=== PATIENT | female | born 1980 | race Caucasian/White ===

== ENCOUNTER → 2016-08-29 | Outpatient (REF) | payer OTHER | LOC: M SFHCPLAZ 16:52 | DX: D64.9 Anemia, unspecified (principal); J06.9 Acute upper respiratory infection, unspecified ==

== ENCOUNTER → 2016-09-17 | Outpatient (CLI) | payer OTHER ==
[2016-09-17 11:29] LABS: MEAN CORPUSCULAR HEMOGLOBIN 30.4 pg (27.0-33.0); MEAN CORPUSCULAR HGB CONC 33.2 g/dl (32.0-36.5); MEAN CORPUSCULAR VOLUME 91.6 fl (80.0-96.0); RED CELL DISTRIBUTION WIDTH 13.7 % (11.5-14.5)
[2016-09-17 11:35] LABS: CONTROL LINE HCG INT CTR LINE PRESENT
--- NOTE | 2016-09-18 08:06 | REP ---
NONCONTRAST CHEST CT: CLINICAL: Abnormal chest x-ray findings. COMPARISON: Chest x-ray dated 08/30/2016. FINDINGS: CT examination demonstrates the bilateral lung correa to be well aerated, symmetric, and clear. No acute consolidation, nodule or mass lesion appreciated. No chronic interstitial changes are identified. No pleural effusion/reaction or pneumothorax. Tracheobronchial tree is patent. No obvious adenopathy. Mediastinum demonstrates normal thoracic aorta and heart/pericardium. Surrounding musculoskeletal structures are intact and normal. Limited evaluation of the upper abdomen demonstrates normal bilateral adrenal glands. IMPRESSION: Normal noncontrast chest CT. Irregular findings at the left base on recent chest x-ray may have represented transient atelectasis. Unreviewed
== END ==
LOC: M RAD 11:03
PROVIDERS: ATTEND Internal Medicine
DX: R91.8 Other nonspecific abnormal finding of lung field (principal)

== ENCOUNTER → 2016-11-14 | Outpatient (CLI) | payer OTHER ==
--- NOTE | 2016-11-14 07:36 | REP ---
Clinical: Acute epigastric and abdominal pain. Technique: Chávez scale ultrasound using curved array transducer. Findings: The liver and pancreas are normal in contour, size, and echogenicity without focal hepatic or pancreatic lesions identified. The gallbladder is normal without gallstones, wall thickening or pericholecystic fluid. No biliary ductal dilatation is appreciated, and the common bile duct measures 5.2 mm diameter. The right kidney is normal in reniform shape without hydronephrosis and measures 10.6 x 6.5 x 4.9 cm. No ascites. Visualized portions of the abdominal aorta normal. Impression: Normal right upper quadrant and gallbladder abdominal ultrasound. Signed by Manny Bailon MD 11/14/2016 07:26 A
== END ==
LOC: M RAD 06:58
PROVIDERS: ATTEND Family Medicine
DX: R10.13 Epigastric pain (principal)

== ENCOUNTER → 2016-12-23 | Outpatient (REF) | payer OTHER | LOC: M SFHCWAGY 16:02 | PROVIDERS: ATTEND Nurse Practitioner Family | DX: R35.0 Frequency of micturition (principal) ==

== ENCOUNTER → 2017-01-01 | Outpatient (CLI) | payer OTHER | LOC: M LAB 13:03 | PROVIDERS: ATTEND Family Medicine | DX: R53.83 Other fatigue (principal) ==

== ENCOUNTER → 2017-05-14 | Outpatient (CLI) | payer OTHER ==
[2017-05-14 13:56] LABS: HEMATOCRIT 39.8 % (36.0-47.0); MEAN CORPUSCULAR HEMOGLOBIN 29.5 pg (27.0-33.0); MEAN CORPUSCULAR HGB CONC 32.7 g/dl (32.0-36.5); MEAN CORPUSCULAR VOLUME 90.2 fl (80.0-96.0); PLATELET COUNT, AUTOMATED 152 10^3/uL (150-450); RED BLOOD COUNT 4.41 10^6/uL (4.00-5.40); RED CELL DISTRIBUTION WIDTH 12.6 % (11.5-14.5); WHITE BLOOD COUNT 3.8 10^3/uL (4.0-10.0)
== END ==
LOC: M LAB 12:54
DX: D64.9 Anemia, unspecified (principal)
CPT/HCPCS: 85027

== ENCOUNTER → 2017-07-06 | Outpatient (REF) | payer OTHER | LOC: M LAB REF 15:35 | DX: J02.9 Acute pharyngitis, unspecified (principal) ==

== ENCOUNTER → 2017-09-12 | Outpatient (REF) | payer OTHER, MEDICAID ==
[2017-09-12 14:25] LABS: HIV 1&2 SCREEN CENTAUR NEGATIVE (NEGATIVE)
[2017-09-12 15:53] LABS: CHLAMYDIA DNA AMPLIFICATION NEGATIVE (NEGATIVE); GC DNA AMPLIFICATION NEGATIVE (NEGATIVE)
[2017-09-17 00:08] LABS: HPV HYBRID CAPTURE II Positive (Negative)
== END ==
LOC: M SFHCWAGY 11:13
DX: Z01.419 Encounter for gynecological examination (general) (routine) without abnormal findings (principal); Z11.51 Encounter for screening for human papillomavirus (HPV); R87.620 Atypical squamous cells of undetermined significance on cytologic smear of vagina (ASC-US)

== ENCOUNTER → 2017-10-13 | Outpatient (REF) | payer OTHER | LOC: M SFHCWAGY 13:55 | DX: R87.810 Cervical high risk human papillomavirus (HPV) DNA test positive (principal); R87.610 Atypical squamous cells of undetermined significance on cytologic smear of cervix (ASC-US) | CPT/HCPCS: 88305 ==

== ENCOUNTER → 2017-12-11 | Outpatient (REF) | payer OTHER | LOC: M SFHCLERA 12-12 12:12 | DX: D36.7 Benign neoplasm of other specified sites (principal) ==

== ENCOUNTER → 2018-01-23 | Outpatient (REF) | payer OTHER | LOC: M SFHCWAGY 17:04 | DX: N90.89 Other specified noninflammatory disorders of vulva and perineum (principal) | CPT/HCPCS: 87255 ==

== ENCOUNTER → 2018-03-12 | Outpatient (REF) | payer OTHER | LOC: M SFHCPLAZ 13:50 | DX: R63.5 Abnormal weight gain (principal) ==

== ENCOUNTER → 2018-05-25 | Outpatient (CLI) | payer OTHER ==
[2018-05-25 12:59] LABS: HEMATOCRIT 36.9 % (36.0-47.0); HEMOGLOBIN 12.1 g/dl (12.0-15.5); MEAN CORPUSCULAR HEMOGLOBIN 28.8 pg (27.0-33.0); MEAN CORPUSCULAR HGB CONC 32.8 g/dl (32.0-36.5); MEAN CORPUSCULAR VOLUME 87.9 fl (80.0-96.0); PLATELET COUNT, AUTOMATED 165 10^3/uL (150-450); WHITE BLOOD COUNT 4.9 10^3/uL (4.0-10.0)
== END ==
LOC: M LAB 12:31
PROVIDERS: ATTEND Internal Medicine
DX: R63.5 Abnormal weight gain (principal)

== ENCOUNTER 2018-12-27 16:41 | Emergency (ER) | payer OTHER ==
[~2018-12-27] VITALS: Ht 167.6 cm; Wt 78.9 kg
[2018-12-27] MEDS ORDERED: MULTCAP PO (16:47)
[2018-12-27 17:15] LABS: BASO % 0.6 % (0.0-1.0); EOS % 0.3 % (0.0-3.0); HEMATOCRIT 38.8 % (36.0-47.0); HEMOGLOBIN 12.7 g/dl (12.0-15.5); LYMPH % 28.6 % (24.0-44.0); MEAN CORPUSCULAR HEMOGLOBIN 29.1 pg (27.0-33.0); MEAN CORPUSCULAR HGB CONC 32.7 g/dl (32.0-36.5); MEAN CORPUSCULAR VOLUME 88.8 fl (80.0-96.0); MONO # 0.5 10^3/uL (0.0-0.8); MONO % 7.4 % (0.0-5.0); NEUTROPHILS # 4.3 10^3/uL (1.8-7.7); NEUTROPHILS % 62.8 % (36.0-66.0); PLATELET COUNT, AUTOMATED 206 10^3/uL (150-450); RED BLOOD COUNT 4.37 10^6/uL (4.00-5.40); WHITE BLOOD COUNT 6.9 10^3/uL (4.0-10.0)
[2018-12-27 17:41] LABS: ALBUMIN 4.3 GM/DL (3.2-5.2); ALT/SGPT 42 U/L (12-78); BILIRUBIN,DIRECT 0.1 MG/DL (0.0-0.2); BILIRUBIN,TOTAL 0.5 MG/DL (0.2-1.0); BLOOD UREA NITROGEN 7 MG/DL (7-18); CALCIUM LEVEL 9.8 MG/DL (8.5-10.1); CARBON DIOXIDE LEVEL 25 MEQ/L (21-32); CHLORIDE LEVEL 107 MEQ/L (98-107); CREATININE FOR GFR 0.76 MG/DL (0.55-1.30); GLOMERULAR FILTRATION RATE > 60.0 (>60); GLUCOSE, FASTING 96 MG/DL (70-100); LIPASE 131 U/L (73-393); POTASSIUM SERUM 3.7 MEQ/L (3.5-5.1); SODIUM LEVEL 140 MEQ/L (136-145); TOTAL PROTEIN 8.2 GM/DL (6.4-8.2)
[2018-12-27] MEDS ORDERED: SUCRALFATE 1 GM TAB PO ONE (17:45)
[2018-12-27] MEDS ORDERED: GI COCKTAIL 50ML BTL(HYOSCYAMINE/MAALOX/LIDOCAINE VISCOUS)(1:3:1) PO ONE (17:45)
[2018-12-27] MEDS ORDERED: NS 1,000 ML IV ONE (17:45)
[2018-12-27] MEDS ORDERED: ONDANSETRON 4MG/2ML VIAL (J2405) IV PRN (17:45)
[2018-12-27] MEDS ORDERED: ZANT150T40 PO (19:28)
[2018-12-27] MEDS ORDERED: ZOFR4TAB16 PO (19:28)
[2018-12-27] MEDS ORDERED: CARA1TAB6 PO (19:28)
[2018-12-27 20:00] VITALS: BP 119/73
== END 2018-12-27 20:07 | disposition home or self-care (01) ==
LOC: M ED 16:41
DX: R10.13 Epigastric pain (principal); R11.0 Nausea; J45.909 Unspecified asthma, uncomplicated
CPT/HCPCS: 80048; 80076; 81001; 83690; 84702; 85025; 87086; 96361; 96374; 99284; J2405

== ENCOUNTER → 2018-12-31 | Outpatient (REF) | payer OTHER ==
[~2018-12-31] MED LIST: CARA1TAB6 PO; MULTCAP PO; ZANT150T40 PO; ZOFR4TAB16 PO
[2019-01-02 16:05] LABS: HPV HYBRID CAPTURE II Negative (Negative)
== END ==
LOC: M SFHCWAGY 10:18
PROVIDERS: ATTEND Nurse Practitioner Family
DX: Z12.4 Encounter for screening for malignant neoplasm of cervix (principal); R87.610 Atypical squamous cells of undetermined significance on cytologic smear of cervix (ASC-US)

== ENCOUNTER → 2019-01-29 | Outpatient (REF) | payer OTHER ==
[2019-02-01 15:09] LABS: CHLAMYDIA DNA AMPLIFICATION NEGATIVE (NEGATIVE); GC DNA AMPLIFICATION NEGATIVE (NEGATIVE)
== END ==
LOC: M SFHCPLAZ 09:47
PROVIDERS: ATTEND Internal Medicine
DX: N30.00 Acute cystitis without hematuria (principal)

== ENCOUNTER → 2019-02-10 | Outpatient (CLI) | payer OTHER ==
--- NOTE | 2019-02-10 14:34 | REP ---
Lumbar spine seven views including lateral views in flexion and extension: There is lumbar scoliosis convex left, possibly positional. The lumbar vertebral body heights and alignment are normal. . Interspacing is normal. The transverse processes of L5 are congenitally enlarged. The enlarged L5 right transverse process forms a pseudoarticulation with the sacrum as a congenital variation. The pedicles and facet articulations are unremarkable. There is questionable L5 unilateral spondylolysis on the left. There is no spondylolisthesis. There is no spondylolisthesis on the lateral views in flexion or extension. The sacroiliac articulations are unremarkable. There are faintly visible tiny calcifications in the soft tissues to the right of the lumbar spine of uncertain significance, possibly tiny foreign bodies or clothing artifacts. The Impression: Scoliosis convex left. 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 The enlarged right L5 transverse process forms a pseudoarticulation with the sacrum. Questionable L5 left spondylolysis. There is no spondylolisthesis. Electronically Signed by Baljeet Slaughter MD 02/10/2019 02:25 P
== END ==
LOC: M RAD 12:03
PROVIDERS: ATTEND Internal Medicine
DX: M54.5 Low back pain (principal)

== ENCOUNTER → 2019-07-12 | Outpatient (CLI) | payer OTHER ==
[2019-07-12 18:14] LABS: BASO % 0.3 % (0.0-1.0); EOS % 0.4 % (0.0-3.0); HEMATOCRIT 37.1 % (36.0-47.0); HEMOGLOBIN 12.4 g/dl (12.0-15.5); LYMPH # 1.6 10^3/uL (1.5-5.0); LYMPH % 22.2 % (24.0-44.0); MEAN CORPUSCULAR HEMOGLOBIN 30.3 pg (27.0-33.0); MEAN CORPUSCULAR HGB CONC 33.4 g/dl (32.0-36.5); MEAN CORPUSCULAR VOLUME 90.7 fl (80.0-96.0); MONO # 0.4 10^3/uL (0.0-0.8); MONO % 5.7 % (0.0-5.0); NEUTROPHILS % 71.1 % (36.0-66.0); PLATELET COUNT, AUTOMATED 148 10^3/uL (150-450); RED BLOOD COUNT 4.09 10^6/uL (4.00-5.40)
[2019-07-12 19:10] LABS: HEPATITIS C VIRUS ABY INDEX < 0.0 INDEX (<0.8); HIV 1&2 SCREEN CENTAUR NEGATIVE (NEGATIVE); RUBELLA IgG QUALITATIVE IMMUNE (IMMUNE)
[2019-07-12 20:18] LABS: CHLAMYDIA DNA AMPLIFICATION NEGATIVE (NEGATIVE); GC DNA AMPLIFICATION NEGATIVE (NEGATIVE)
== END ==
LOC: M PLALAB 12:35
PROVIDERS: ATTEND Advanced Practice Midwife
DX: O09.521 Supervision of elderly multigravida, first trimester (principal); Z3A.00 Weeks of gestation of pregnancy not specified

== ENCOUNTER → 2019-08-23 | Outpatient (CLI) | payer OTHER ==
--- NOTE | 2019-08-24 04:14 | REP ---
Clinical: Anatomical evaluation. Comparison: None . Findings: Examination demonstrates a single live intrauterine in transverse (head to maternal right) presentation. motion is identified by technologist. Placenta is noted posterior and grade I without evidence for placenta previa or abruption. Amniotic fluid volume is normal. Cervix measures 4.5 cm in length and appears closed. No evidence for nuchal cord. Gestational age by LMP 20 weeks 3 days with NAVJOT 01/07/2020 . Gestational age by current measurements 20 weeks 2 days with NAVJOT 01/08/2020 . FHR equals 152 beats per minute. BPD 4.6 cm 20 weeks 0 days HC 18.3 cm 20 weeks 5 days AC 15.6 cm 20 weeks 5 days FL 3.3 cm 20 weeks 2 days HL 3.2 cm 20 weeks 6 days HC/AC ratio 1.17 Estimated weight 361 grams ( 52nd percentile). Anatomical assessment demonstrates normal structures including cranium, choroid plexus, cavum, cerebellum/posterior fossa, facial features, lungs, four-chamber heart/ventricular outflow tracts, diaphragm, stomach, cord insertion/three-vessel cord, kidneys/bladder, spine, and extremities. Impression: Single live intrauterine in transverse lie demonstrating appropriate interval growth. Anatomical assessment is complete and normal.
== END ==
LOC: M WHC 11:09
PROVIDERS: ATTEND Nurse Practitioner Women's Health
DX: O09.522 Supervision of elderly multigravida, second trimester (principal); Z3A.18 18 weeks gestation of pregnancy

== ENCOUNTER → 2019-10-05 | Outpatient (REF) | payer OTHER ==
[2019-10-05 14:06] LABS: HEMATOCRIT 34.1 % (36.0-47.0); HEMOGLOBIN 11.1 g/dl (12.0-15.5); MEAN CORPUSCULAR HGB CONC 32.6 g/dl (32.0-36.5); MEAN CORPUSCULAR VOLUME 95.3 fl (80.0-96.0); PLATELET COUNT, AUTOMATED 138 10^3/uL (150-450); RED BLOOD COUNT 3.58 10^6/uL (4.00-5.40); WHITE BLOOD COUNT 8.4 10^3/uL (4.0-10.0)
== END ==
LOC: M PLALAB 09:55
PROVIDERS: ATTEND Advanced Practice Midwife
DX: O09.522 Supervision of elderly multigravida, second trimester (principal)

== ENCOUNTER → 2019-10-13 | Outpatient (REF) | payer OTHER ==
[2019-10-13 20:40] LABS: CHLAMYDIA DNA AMPLIFICATION NEGATIVE (NEGATIVE); GC DNA AMPLIFICATION NEGATIVE (NEGATIVE)
== END ==
LOC: M SFHCWAGY 17:30
PROVIDERS: ATTEND Advanced Practice Midwife
DX: Z34.82 Encounter for supervision of other normal pregnancy, second trimester (principal)

== ENCOUNTER → 2019-12-21 | Outpatient (REF) | payer OTHER ==
[~2019-12-21] MED LIST changes: +PRENTAB53 PO; +VENTAER INH
== END ==
LOC: M SFHCWAGY 09:28
PROVIDERS: ATTEND Specialist
DX: Z34.80 Encounter for supervision of other normal pregnancy, unspecified trimester (principal)

== ENCOUNTER 2020-01-13 18:02 | Inpatient (IN) | payer OTHER ==
[~2020-01-13] VITALS: Ht 167.6 cm; Wt 88.5 kg
[2020-01-13] VITALS (11 sets, daily range): BP systolic 85–124; BP diastolic 48–75
[~2020-01-13 18:02] MED LIST changes: -PRENTAB53 PO; -VENTAER INH
[2020-01-13] MEDS ORDERED: OXYTOCIN DRIP 30 UNITS in IV 1 EA IV SCH (19:00)
[2020-01-13] MEDS ORDERED: VENTAER INH (19:22)
[2020-01-13 20:03] LABS: HEMATOCRIT 33.8 % (36.0-47.0); HEMOGLOBIN 11.4 g/dl (12.0-15.5); MEAN CORPUSCULAR HEMOGLOBIN 31.8 pg (27.0-33.0); MEAN CORPUSCULAR HGB CONC 33.7 g/dl (32.0-36.5); MEAN CORPUSCULAR VOLUME 94.2 fl (80.0-96.0); PLATELET COUNT, AUTOMATED 114 10^3/uL (150-450); RED BLOOD COUNT 3.59 10^6/uL (4.00-5.40); WHITE BLOOD COUNT 8.3 10^3/uL (4.0-10.0)
[2020-01-13] MEDS: LR 1,000 ML IV SCH (20:32)
[2020-01-13] MEDS ORDERED: BUTORPHANOL 2 MG/ML INJ (J0595) IV ONE (23:30)
[2020-01-13] MEDS ORDERED: PROMETHAZINE INJ 25 MG/ML VIAL (J2550) IV ONE (23:30)
[2020-01-13] MEDS ORDERED: ALBUTEROL 90 MCG/ACT 8GM HFA INHALER INH PRN (23:45)
[2020-01-14] VITALS (46 sets, daily range): BP systolic 85–130; BP diastolic 48–78
[2020-01-14] MEDS: LR 1,000 ML IV SCH ×2 (06:08→09:38)
--- NOTE | 2020-01-14 09:00 | HPE ---
DATE OF ADMISSION: 01/13/2020 HISTORY OF PRESENT ILLNESS: This is a 39-year-old G4, P3 female at 39 and 3/7 weeks gestation who presents for labor induction. The patient has occasional contractions. She denies vaginal bleeding. She was 3-4 cm dilated in the office on the last exam. OBSTETRICAL HISTORY: Term spontaneous vaginal delivery x3. MEDICAL HISTORY: None. SURGICAL HISTORY: Surgery on her foot. ALLERGIES: None. SOCIAL HISTORY: The patient smokes cigarettes, denies alcohol or drug use. The father of the baby is involved. FAMILY HISTORY: Noncontributory. PHYSICAL EXAMINATION: VITAL SIGNS: Blood pressure 85/53, pulse 93, respiratory rate 18, no apparent distress. HEENT: Head and neck exam are normal. LUNGS: Clear. HEART: Regular rate and rhythm. ABDOMEN: Nontender, gravid, heart tones Category I. STERILE VAGINAL EXAM: 3-4 cm, 70%, -2, posterior soft vertex. EXTREMITIES: Nontender. LABORATORY: Blood type A positive. GBS negative. ASSESSMENT: This is a 39-year-old G4, P3 female at 39 and 3/7 weeks gestation who presents for labor induction. The risks of induction were discussed. PLAN: The patient is admitted on 01/13/2020. FABIAN
[2020-01-14] MEDS ORDERED: FENTANYL 2MCG/ML ROPIVACAINE 0.2% IN 0.9% NACL 100ML IVBAG As Ordered ONE (09:41)
[2020-01-14 10:11] LABS: HEMATOCRIT 32.5 % (36.0-47.0); HEMOGLOBIN 10.9 g/dl (12.0-15.5); MEAN CORPUSCULAR HEMOGLOBIN 31.8 pg (27.0-33.0); MEAN CORPUSCULAR HGB CONC 33.5 g/dl (32.0-36.5); MEAN CORPUSCULAR VOLUME 94.8 fl (80.0-96.0); RED BLOOD COUNT 3.43 10^6/uL (4.00-5.40); WHITE BLOOD COUNT 10.2 10^3/uL (4.0-10.0)
[2020-01-14 10:41] LABS: PLATELET COUNT, AUTOMATED 98 10^3/uL (150-450)
--- NOTE | 2020-01-14 11:39 | IPNPDOC ---
Text Note Date of Service The patient was seen on 01/14/20. NOTE Progress Comfortable with epidural Irregular moderate contractions FH 135, Cat I SVE BBOW, 7cm/80/-2 AROM copious thin meconium stained fluid Anticipate NSVB VS,Fishbone, I+O VS, Fishbone, I+O Laboratory Tests 01/13/20 19:38 01/14/20 09:59 Vital Signs Date Time Temp Pulse Resp B/P (MAP) Pulse Ox O2 Delivery O2 Flow Rate FiO2 01/14/20 11:02 78 121/72 (88) 01/14/20 10:51 97.5 01/14/20 06:52 18 I&O- Last 24 Hours up to 6 AM 01/14/20 05:59 Intake Total 1846 ml Output Total 600 ml Balance 1246 ml Esther Vogel CNM Jan 14, 2020 11:39
[2020-01-14] MEDS ORDERED: ePHEDrine SULFATE 25 MG/5 ML(5MG/ML) SYRINGE IV PRN (12:45)
[2020-01-14] MEDS ORDERED: REFRIGERATOR IV KEYS XX PRN (12:45)
[2020-01-14] MEDS ORDERED: EPIDURAL/PCA KEYS XX PRN (12:45)
[2020-01-14] MEDS ORDERED: FENTANYL/ROPIVACAINE/NACL BAG 100 ML EPIDURAL SCH (12:45)
[2020-01-14] MEDS ORDERED: diphenhydrAMINE 50MG/ML VIAL (J1200) IV PRN (12:45)
[2020-01-14] MEDS ORDERED: NALOXONE INJ 0.4MG/1ML VIAL (J2310 PER 1MG) IV PRN (12:45)
[2020-01-14] MEDS ORDERED: EPIDURAL COMMENT XX SCH (12:45)
[2020-01-14] MEDS ORDERED: ONDANSETRON 4MG/2ML VIAL IV PRN (12:45)
[2020-01-14] MEDS ORDERED: LACTATED RINGER'S 1000 ML IV PRN (12:45)
[2020-01-14 15:12] LABS: CORD GAS O2 SAT V 90.7 %
[2020-01-14 15:23] LABS: CORD GAS ABE V -2.1; CORD GAS HCO3 V 21.2 MEQ/L; CORD GAS PCO2 V 33.1 mmHg; CORD GAS PH V 7.424 UNITS; CORD GAS PO2 V 46.1 mmHg; CORD GAS SBC V 22.6 MEQ/L; CORD GAS TCO2 V 22.2 MEQ/L
[2020-01-14 15:25] LABS: CORD GAS ABE A -4.5; CORD GAS HCO3 A 20.7 MEQ/L; CORD GAS PCO2 A 39.1 mmHg; CORD GAS PH A 7.342 UNITS; CORD GAS PO2 A 25.3 mmHg; CORD GAS SBC A 19.8 MEQ/L; CORD GAS TCO2 A 21.9 MEQ/L
--- NOTE | 2020-01-14 15:25 | DNPDOC ---
[facility] Delivery Note Delivery Note DATE OF DELIVERY: 01/14/2020 PREDELIVERY DIAGNOSIS: 39+4/7 weeks' gestation and labor. POST DELIVERY DIAGNOSIS: Delivered. PROCEDURE: Spontaneous vaginal delivery. PROVIDER: Esther Vogel CNM with Dr Madden FP finance intern ANESTHESIA: Epidural ESTIMATED BLOOD LOSS: 400 mL. FINDINGS: 8 pound 2 ounce, 3680 gm female infant, Score 5/9, compound presentation with posterior right arm, body cord times 1. DELIVERY SUMMARY: Patient is a 39-year-old 4 now para 4-0-0-4 who was admitted to labor and delivery for induction of labor due to advanced maternal age. She received pitocin and labor did progress. Artificial rupture of membranes for thin meconium stained fluid at 1131. She utilized an epidural for labor coping. Fully dilated 1425. Viable female delivered LUZ, compound with right posterior arm at 1451, loose body cord noted. Bulb suctioned prior to delivery, was slow to transition. Cord doubly clamped and cut, to warmer for further suctioning and stimulation. Apgars 5/9. Cord gases obtained, results pending. Placenta sebastian, intact with 3v cord @ 1458. Fundus firmed with massage and IV pitocin bolus. EBL 400ml. Perineum intact. Right labial abrasion reapproximated with one stitch of 3-0 vicryl rapide. Sponge, sharp and instrument count correct. Esther Vogel CNM Jan 14, 2020 15:19
[2020-01-14] MEDS ORDERED: ANUSOL HC CREAM 30GM TOP PRN (15:30)
[2020-01-14] MEDS ORDERED: MOM 30ML SUSPENSION UDC PO PRN (15:30)
[2020-01-14] MEDS ORDERED: METHYLERGONOVINE MALEATE 0.2 MG TAB PO PRN (15:30)
[2020-01-14] MEDS ORDERED: RHOGAM 300 MCG (1500 IU) INJ (J2790) IM SCH (15:30)
[2020-01-14] MEDS ORDERED: IBUPROFEN 600MG TAB PO PRN (15:30)
[2020-01-14] MEDS ORDERED: ACETAMINOPHEN TAB 650MG DOSE (2X325MG) PO PRN (15:30)
[2020-01-14] MEDS ORDERED: DIBUCAINE 1% OINTMENT 30GM TOP PRN (15:30)
[2020-01-14] MEDS ORDERED: DOCUSATE SODIUM 100 MG CAP PO PRN (15:30)
[2020-01-14] MEDS ORDERED: MEASLES,MUMPS,RUBELLA VACCINE INJ (MMR-II) (90707) SC SCH (15:30)
[2020-01-14] MEDS ORDERED: OXYTOCIN DRIP 30 UNITS in IV 1 EA IV SCH (16:00)
[2020-01-14] MEDS: IBUPROFEN 800 MG TAB PO PRN (23:55)
[2020-01-15 06:00] VITALS: BP 118/63
--- NOTE | 2020-01-15 07:19 | IPNPDOC ---
Text Note Date of Service The patient was seen on 01/15/20. NOTE Feels well. . Reports adequate pain management. Voiding VSS, afebrile, normotensive Breasts soft, nipples intact Fundus firm, NT, down 1 FB Lochia rubra light without odor Perineum intact PP #1 Routine care. Anticipate D/C in am VS,Fishbone, I+O VS, Fishbone, I+O Laboratory Tests 01/14/20 09:59 Vital Signs Date Time Temp Pulse Resp B/P (MAP) Pulse Ox O2 Delivery O2 Flow Rate FiO2 01/15/20 06:00 97.6 69 18 118/63 (81) 01/14/20 18:00 98 Room Air I&O- Last 24 Hours up to 6 AM 01/15/20 06:00 Intake Total 2701 ml Output Total 2700 ml Balance 1 ml Esther Vogel CNM Jan 15, 2020 07:19
[2020-01-15] MEDS: PRENATAL VITAMINS CHEWABLE TABLET PO SCH (08:57)
[2020-01-15] MEDS: ACETAMINOPHEN 500 MG TAB PO PRN ×2 (08:58→19:18)
[2020-01-15] MEDS: IBUPROFEN 800 MG TAB PO PRN (12:24)
[2020-01-15 18:00] VITALS: BP 125/70
[2020-01-16] MEDS: IBUPROFEN 800 MG TAB PO PRN ×2 (00:53→09:03)
[2020-01-16 06:46] VITALS: BP 119/63
[2020-01-16] MEDS: PRENATAL VITAMINS CHEWABLE TABLET PO SCH (08:51)
== END 2020-01-16 14:00 | disposition home or self-care (01) | DRG 560 ==
LOC: M LDI 18:02 → M OBS 01-14 17:48
PROVIDERS: ADMIT Specialist; ATTEND Specialist
PROC: 3E033VJ Introduction of Other Hormone into Peripheral Vein, Percutaneous Approach (ICD-10-PCS; 2020-01-13)
PROC: 10E0XZZ Delivery of Products of Conception, External Approach (ICD-10-PCS; principal; 2020-01-14)
PROC: 10907ZC Drainage of Amniotic Fluid, Therapeutic from Products of Conception, Via Natural or Artificial Opening (ICD-10-PCS; 2020-01-14)
DX: O77.0 Labor and delivery complicated by meconium in amniotic fluid (principal); O32.6XX0 Maternal care for compound presentation, not applicable or unspecified; Z37.0 Single live birth; Z3A.39 39 weeks gestation of pregnancy; O09.523 Supervision of elderly multigravida, third trimester

== ENCOUNTER 2020-01-26 13:47 | Emergency (ER) | payer OTHER ==
[~2020-01-26] VITALS: Ht 167.6 cm; Wt 80.1 kg
[~2020-01-26 13:47] MED LIST changes: +VENTAER INH
[2020-01-26] MEDS ORDERED: PRENTAB53 PO (13:56)
[2020-01-26] MEDS ORDERED: IBUPROFEN 800 MG TAB PO ONE (15:00)
--- NOTE | 2020-01-26 15:28 | REPVR ---
PROCEDURE INFORMATION: Exam: CT Cervical Spine Without Contrast Exam date and time: 01/26/2020 3:06 PM Age: 39 years old Clinical indication: Neck pain; Additional info: Cervical pain, difficulty moving to left TECHNIQUE: Imaging protocol: Computed tomography images of the cervical spine without contrast. Radiation optimization: All CT scans at this facility use at least one of these dose optimization techniques: automated exposure control; mA and/or kV adjustment per patient size (includes targeted exams where dose is matched to clinical indication); or iterative reconstruction. COMPARISON: No relevant prior studies available. FINDINGS: Vertebrae: Loss of cervical lordosis may be positional or associated with muscular spasm. Vertebral body heights are maintained. There is no fracture or dislocation. Facet joints appear well aligned. There is no vertebral subluxation. 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 Anterior arch is intact. There is borderline widening the atlantal dental interval to 3 5 mm. There is partially visualized rightward convexity upper thoracic spine. Discs/Spinal canal/Neural foramina: There is atlanto-axial assimulation with fusion occipital condyles with lateral masses of C1 bilaterally. There is mild disc osteophyte complex and right uncinate osteophyte at C5-C6. This causes slight right neural foraminal narrowing. No significant left neural foraminal narrowing. Prevertebral Space: Prevertebral soft tissues appear normal. Soft tissues: Unremarkable. Lungs: Lung apices are unremarkable for acute finding. Pleural space: There is a small left pleural effusion as visualized. IMPRESSION: 1. Loss of cervical lordosis. No evidence of fracture or dislocation. 2. 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 3. Small left pleural effusion. 4. Other findings as described. Electronically signed by: Talya Perera On 01/26/2020 15:28:38 PM
[2020-01-26 15:56] VITALS: BP 132/85
--- NOTE | 2020-01-28 08:53 | ED PDOC ---
Post-Departure Follow-Up morris durand sent pertaining to radiology Dianna Castro MD Jan 28, 2020 08:53
== END 2020-01-26 15:58 | disposition home or self-care (01) ==
LOC: M ED 13:47
DX: M62.838 Other muscle spasm (principal); J45.909 Unspecified asthma, uncomplicated; J90 Pleural effusion, not elsewhere classified; R93.7 Abnormal findings on diagnostic imaging of other parts of musculoskeletal system; Z79.51 Long term (current) use of inhaled steroids

== ENCOUNTER → 2020-03-15 | Outpatient (REF) | payer OTHER ==
[~2020-03-15] MED LIST changes: +PRENTAB53 PO
[2020-03-15 16:07] LABS: CHLAMYDIA DNA AMPLIFICATION NEGATIVE (NEGATIVE); GC DNA AMPLIFICATION NEGATIVE (NEGATIVE)
== END ==
LOC: M SFHCWAGY 14:09
PROVIDERS: ATTEND Advanced Practice Midwife
DX: Z11.3 Encounter for screening for infections with a predominantly sexual mode of transmission (principal)

== ENCOUNTER → 2020-04-27 | Outpatient (REF) | payer OTHER | LOC: M SFHCWAGY 13:54 | PROVIDERS: ATTEND Advanced Practice Midwife | DX: Z12.4 Encounter for screening for malignant neoplasm of cervix (principal) ==

== ENCOUNTER → 2020-08-23 | Outpatient (REF) | payer OTHER ==
[2020-08-23 14:26] LABS: BASO % 0.7 % (0.0-1.0); HEMATOCRIT 40.7 % (36.0-47.0); HEMOGLOBIN 13.3 g/dl (12.0-15.5); LYMPH # 1.8 10^3/uL (1.5-5.0); LYMPH % 41.8 % (24.0-44.0); MEAN CORPUSCULAR HEMOGLOBIN 30.1 pg (27.0-33.0); MEAN CORPUSCULAR HGB CONC 32.7 g/dl (32.0-36.5); MEAN CORPUSCULAR VOLUME 92.1 fl (80.0-96.0); MONO # 0.3 10^3/uL (0.0-0.8); MONO % 7.1 % (2.0-8.0); NEUTROPHILS # 2.1 10^3/uL (1.5-8.5); NEUTROPHILS % 49.2 % (36.0-66.0); PLATELET COUNT, AUTOMATED 171 10^3/uL (150-450); RED BLOOD COUNT 4.42 10^6/uL (4.00-5.40); WHITE BLOOD COUNT 4.2 10^3/uL (4.0-10.0)
[2020-08-23 18:00] LABS: ALBUMIN 3.6 GM/DL (3.2-5.2); ALT/SGPT 20 U/L (12-78); BILIRUBIN,TOTAL 0.6 MG/DL (0.2-1.0); BLOOD UREA NITROGEN 10 MG/DL (7-18); CALCIUM LEVEL 9.4 MG/DL (8.5-10.1); CARBON DIOXIDE LEVEL 26 MEQ/L (21-32); CHLORIDE LEVEL 107 MEQ/L (98-107); CHOLESTEROL LEVEL 267 MG/DL (<200); CHOLESTEROL RISK RATIO 5.134 (<5); CREATININE FOR GFR 0.83 MG/DL (0.55-1.30); GLOMERULAR FILTRATION RATE > 60.0 (>60); GLUCOSE, FASTING 111 MG/DL (70-100); HDL CHOLESTEROL 52 MG/DL (>40); LDL CHOLESTEROL 181 MG/DL (<100); NON-HDL-C 215 MG/DL; POTASSIUM SERUM 3.9 MEQ/L (3.5-5.1); SODIUM LEVEL 139 MEQ/L (136-145); TOTAL PROTEIN 7.3 GM/DL (6.4-8.2); TRIGLYCERIDES LEVEL 168 MG/DL (<150)
[2020-08-23 22:52] LABS: HEMOGLOBIN A1c 5.2 %
== END ==
LOC: M SFHCPLAZ 11:32
PROVIDERS: ATTEND Family Medicine
DX: Z13.1 Encounter for screening for diabetes mellitus (principal); Z13.220 Encounter for screening for lipoid disorders; Z86.2 Personal history of diseases of the blood and blood-forming organs and certain disorders involving the immune mechanism

== ENCOUNTER → 2020-10-08 | Outpatient (CLI) | payer OTHER ==
--- NOTE | 2020-10-08 11:25 | REPVR ---
PROCEDURE INFORMATION: Exam: MR Lumbar Spine Without Contrast Exam date and time: 10/08/2020 10:00 AM Age: 39 years old Clinical indication: Other: Radiculopathy R/O hnp stenosis TECHNIQUE: Imaging protocol: Multiplanar magnetic resonance images of the lumbar spine without intravenous contrast. COMPARISON: CR Spine,LS wBENDING MIN 6 VIEWS 02/10/2019 12:14 PM FINDINGS: Vertebrae: There is lumbarization of the S1 vertebral body with formation of a transitional vertebra. The lowermost well visualized disc will be labeled as S1-S2 . The lumbar vertebral bodies are normal in height,signal intensity and alignment.No acute fracture or dislocation is seen. Spinal epidural space: There is no evidence of epidural masses or hemorrhage. Spinal cord: The conus medullaris is normal. The cauda equina nerve roots demonstrate no crowding or displacement. L1-L2: There is no significant degenerative disc herniation.The spinal canal and neural foramina are patent and without significant stenosis. L2-L3: There is no significant degenerative disc herniation.The spinal canal and neural foramina are patent and without significant stenosis. L3-L4: There is no significant degenerative disc herniation.The spinal canal and neural foramina are patent and without significant stenosis. L4-L5: There is no significant degenerative disc herniation.The spinal canal and neural foramina are patent and without significant stenosis. L5-S1: Mildly reduced in height and T2 signal indicating degeneration. Small diffuse posterior herniation.There is a small focus of increased signal intensity posteriorly, consistent with an annular tear. The facet joints demonstrate mild degenerative hypertrophy and sclerosis.There is no evidence of spinal canal narrowing. There is mild bilateral foraminal stenosis. Soft tissues: The prevertebral soft tissues appear normal. IMPRESSION: 1. MRI of the lumbar spine reveals mild degenerative spondylitic changes and degenerative disc disease at L5-S1 level as described above. 2. There is lumbarization of the S1 vertebral body with formation of a transitional vertebra. The lowermost well visualized disc will be labeled as S1-S2 . Electronically signed by: Cristian Mitchell On 10/08/2020 11:25:17 AM
== END ==
LOC: M RAD 09:03
PROVIDERS: ATTEND Orthopaedic Surgery
DX: M54.16 Radiculopathy, lumbar region (principal)

== ENCOUNTER → 2021-01-11 | Outpatient (REF) | payer OTHER | LOC: M LAB REF 18:07 | PROVIDERS: ATTEND Advanced Practice Midwife | DX: Z12.4 Encounter for screening for malignant neoplasm of cervix (principal); R87.610 Atypical squamous cells of undetermined significance on cytologic smear of cervix (ASC-US) ==

== ENCOUNTER → 2021-10-23 | Outpatient (REF) | payer OTHER | LOC: M SFHCDERM 16:33 | PROVIDERS: ATTEND Physician Assistant | DX: C44.01 Basal cell carcinoma of skin of lip (principal) ==

== ENCOUNTER → 2022-02-14 | Outpatient (CLI) | payer OTHER ==
[2022-02-14 16:34] LABS: BLOOD UREA NITROGEN 9 MG/DL (7-18); CREATININE FOR GFR 0.78 MG/DL (0.55-1.30); GLOMERULAR FILTRATION RATE > 60.0 (>60)
== END ==
LOC: M PLALAB 12:51
PROVIDERS: ATTEND Physician Assistant
DX: M51.37 Other intervertebral disc degeneration, lumbosacral region (principal); M48.061 Spinal stenosis, lumbar region without neurogenic claudication

== ENCOUNTER → 2022-06-12 | Outpatient (REF) | payer OTHER ==
[2022-06-12 16:36] LABS: GC DNA AMPLIFICATION NEGATIVE (NEGATIVE)
== END ==
LOC: M PLALAB 09:41
PROVIDERS: ATTEND Advanced Practice Midwife
DX: Z12.4 Encounter for screening for malignant neoplasm of cervix (principal); R87.612 Low grade squamous intraepithelial lesion on cytologic smear of cervix (LGSIL)

== ENCOUNTER → 2023-03-07 | Outpatient (CLI) | payer OTHER ==
[2023-03-07 16:19] LABS: HEMATOCRIT 38.5 % (36.0-47.0); HEMOGLOBIN 12.7 g/dl (12.0-15.5); MEAN CORPUSCULAR HEMOGLOBIN 30.6 pg (27.0-33.0); MEAN CORPUSCULAR VOLUME 92.8 fl (80.0-96.0); PLATELET COUNT, AUTOMATED 148 10^3/uL (150-450); RED BLOOD COUNT 4.15 10^6/uL (4.00-5.40); WHITE BLOOD COUNT 5.7 10^3/uL (4.0-10.0)
[2023-03-07 16:44] LABS: ALBUMIN 3.6 G/DL (3.2-5.2); ALKALINE PHOSPHATASE 53 U/L (46-116); ALT/SGPT 18 U/L (7.0-40); AST/SGOT 14 U/L (<34); BILIRUBIN,TOTAL 0.8 MG/DL (0.3-1.2); BLOOD UREA NITROGEN 10 MG/DL (9-23); CALCIUM LEVEL 8.7 MG/DL (8.5-10.1); CARBON DIOXIDE LEVEL 27 MMOL/L (20-31); CHLORIDE LEVEL 107 MMOL/L (98-107); CHOLESTEROL LEVEL 224 MG/DL (<200); CHOLESTEROL RISK RATIO 3.55 (<5); CREATININE FOR GFR 0.66 MG/DL (0.55-1.30); GLOMERULAR FILTRATION RATE > 60.0 (>58); GLUCOSE, FASTING 84 MG/DL (60-100); LDL CHOLESTEROL 142.8 MG/DL (<100); SODIUM LEVEL 141 MMOL/L (136-145); TOTAL PROTEIN 6.7 G/DL (5.7-8.2); TRIGLYCERIDES LEVEL 91 MG/DL (<150)
[2023-03-07 16:45] LABS: FOLATE 23.8 NG/ML (>5.4); TOTAL 25(OH) VITAMIN D 23.8 NG/ML (20.0-100.0)
[2023-03-07 16:46] LABS: THYROID STIMULATING HORMONE 4.406 uIU/ML (0.55-4.78); VITAMIN B12 LEVEL 549 PG/ML (211-911)
[2023-03-07 16:51] LABS: HEMOGLOBIN A1c 4.7 % (4.0-6.0)
== END ==
LOC: M PLALAB 12:38
PROVIDERS: ATTEND Student in an Organized Health Care Education/Training Program
DX: Z13.1 Encounter for screening for diabetes mellitus (principal); Z13.220 Encounter for screening for lipoid disorders

== ENCOUNTER → 2023-05-28 | Outpatient (REF) | LOC: M LAB 14:27 | PROVIDERS: ATTEND Nurse Practitioner Adult Health | DX: Z02.89 Encounter for other administrative examinations (principal) ==

== ENCOUNTER → 2024-07-15 | Outpatient (REF) | payer OTHER ==
[2024-07-15 12:00] LABS: Trichomonas vaginalis (AMP) NOT DETECTED (NEGATIVE)
[2024-07-15 12:24] LABS: GC DNA AMPLIFICATION NEGATIVE (NEGATIVE)
[2024-07-17 14:23] LABS: HPV APTIMA Not Detected (Not Detected)
== END ==
LOC: M PLALAB 09:11
PROVIDERS: ATTEND Advanced Practice Midwife
DX: Z01.419 Encounter for gynecological examination (general) (routine) without abnormal findings (principal); Z11.3 Encounter for screening for infections with a predominantly sexual mode of transmission

== ENCOUNTER → 2024-07-15 | Outpatient (CLI) | payer OTHER | LOC: M WHC 11:18 | PROVIDERS: ATTEND Advanced Practice Midwife | DX: Z12.31 Encounter for screening mammogram for malignant neoplasm of breast (principal); N63.21 Unspecified lump in the left breast, upper outer quadrant | CPT/HCPCS: 77063; 77067; G0123 ==

== ENCOUNTER → 2024-08-16 | Outpatient (CLI) | payer OTHER | LOC: M WHC 12:36 | PROVIDERS: ATTEND Advanced Practice Midwife | DX: R92.8 Other abnormal and inconclusive findings on diagnostic imaging of breast (principal); N60.12 Diffuse cystic mastopathy of left breast ==

== ENCOUNTER → 2024-09-07 | Outpatient (REF) | payer OTHER | LOC: M SFHCDERM 16:25 | PROVIDERS: ATTEND Physician Assistant | DX: D23.5 Other benign neoplasm of skin of trunk (principal); D23.71 Other benign neoplasm of skin of right lower limb, including hip ==

== ENCOUNTER → 2025-02-04 | Outpatient (REF) | payer OTHER | LOC: M SFHCPLAZ 16:45 | PROVIDERS: ATTEND Student in an Organized Health Care Education/Training Program | DX: J06.9 Acute upper respiratory infection, unspecified (principal) ==

== ENCOUNTER → 2025-04-04 | Outpatient (CLI) | payer OTHER ==
[2025-04-04 15:25] LABS: PLATELET COUNT, AUTOMATED 204 10^3/uL (150-450)
[2025-04-04 15:56] LABS: IRON (FE) 57 UG/DL (50-170)
[2025-04-04 15:58] LABS: FREE T4 0.88 NG/DL (0.89-1.76)
[2025-04-04 18:00] LABS: HCG, SERUM QUALITATIVE POSITIVE (NEGATIVE)
[2025-04-05 09:20] LABS: HCG, SERUM QUANTITATIVE 3079.8 MIU/ML (<4.2)
== END ==
LOC: M PLALAB 14:04
PROVIDERS: ATTEND Advanced Practice Midwife
DX: O20.9 Hemorrhage in early pregnancy, unspecified (principal); Z3A.00 Weeks of gestation of pregnancy not specified

== ENCOUNTER 2025-04-05 12:45 | Emergency (ER) | payer OTHER ==
[~2025-04-05] VITALS: Ht 167.6 cm; Wt 100.0 kg
[2025-04-05 13:56] LABS: KETONE, URINE AUTO RFX NEGATIVE (NEGATIVE); NITRITE, URINE AUTO RFX NEGATIVE (NEGATIVE); RBC, URINE AUTO RFX 2 /HPF (0-3); SQUAM EPITHELIAL CELL UR AURFX 3 /HPF (0-6); WBC, URINE AUTO RFX 5 /HPF (0-3)
[2025-04-05 14:05] LABS: LEUKOCYTE ESTERASE UR AUTO RFX TRACE (NEGATIVE)
[2025-04-05 16:18] LABS: Trichomonas vaginalis (AMP) NOT DETECTED (NEGATIVE)
[2025-04-05 16:24] VITALS: BP 154/93; TEMP 97.6; O2SAT 100
[2025-04-05 16:26] LABS: HIV 1&2 SCREEN NEGATIVE (NEGATIVE)
[2025-04-05 16:41] LABS: GC DNA AMPLIFICATION NEGATIVE (NEGATIVE)
== END 2025-04-05 16:55 | disposition home or self-care (01) ==
LOC: M ED 12:45
DX: O20.0 Threatened abortion (principal); J45.909 Unspecified asthma, uncomplicated; Z79.52 Long term (current) use of systemic steroids; Z79.899 Other long term (current) drug therapy; Z3A.01 Less than 8 weeks gestation of pregnancy